=== PATIENT | female | born 1980 | race Caucasian/White ===

== ENCOUNTER 2018-02-01 19:40 | Observation (INO) | payer OTHER ==
[~2018-02-01] VITALS: Ht 172.7 cm; Wt 101.5 kg
[~2018-02-01 19:40] MED LIST: ALBUTEROL SULF8.5 GM IH; MOTRIN600 MG PO; NAPROXEN500 MG PO; PERCOCET 5/31 TABLET PO; SEROQUEL XR300 MG PO; SUBOXONE 8 M1 TABLET PO; TESSALON200 MG PO
[2018-02-01 21:04] LABS: HEMATOCRIT 37.5 % (36.0-46.0); HEMOGLOBIN 12.7 G/DL (11.9-15.5); MCH 29.8 PG (29.0-34.0); MCHC 33.9 G/DL (30.0-36.0); PLATELET COUNT 351 K/uL (156-360); RBC DIS.WIDTH-CV 13.9 % (11.8-14.6); RED BLOOD COUNT 4.26 M/uL (3.80-5.20); WHITE BLOOD COUNT 10.9 K/uL (4.1-10.2)
[2018-02-01 21:15] LABS: PTT 33.9 SEC (25-37)
[2018-02-01 21:24] LABS: CHLORIDE 112 mEq/L (99-109); POTASSIUM 3.8 mEq/L (3.7-5.4); SODIUM 140 mEq/L (136-147)
[2018-02-01 21:25] LABS: GLUCOSE 92 mg/dL (70-99)
[2018-02-01 21:29] LABS: CREATININE 0.9 mg/dL (0.6-1.3); GFR ESTIMATE (CALCULATED) > 59 mL/min/
[2018-02-01 21:30] LABS: UREA NITROGEN (BUN) 13 mg/dL (9-23)
[2018-02-01 21:37] LABS: QUANTITATIVE HCG < 4.0 MIU/ML
[2018-02-02 00:01] LABS: HDL CHOLESTEROL 36 MG/DL (Desirable>=50); LDL CHOLESTEROL 135 mg/dL (Desirable<100); NON-HDL CHOLESTEROL 183 mg/dL (Desirable<160); TOTAL CHOLESTEROL 219 mg/dL (Desirable<200); TRIGLYCERIDES 239 MG/DL (Normal: <150)
[2018-02-02 00:11] VITALS: BP 108/56
[2018-02-02 04:29] VITALS: BP 107/52
[2018-02-02 05:44] LABS: HEMATOCRIT 35.8 % (36.0-46.0); HEMOGLOBIN 11.5 G/DL (11.9-15.5); MCH 28.5 PG (29.0-34.0); MCHC 32.1 G/DL (30.0-36.0); MCV 88.8 FL (83-99); PLATELET COUNT 308 K/uL (156-360); RBC DIS.WIDTH-CV 13.9 % (11.8-14.6); RBC DIS.WIDTH-SD 45.3 % (39-53); RED BLOOD COUNT 4.03 M/uL (3.80-5.20); WHITE BLOOD COUNT 8.5 K/uL (4.1-10.2)
[2018-02-02 07:05] VITALS: BP 97/54
[2018-02-02 10:52] LABS: HEMOGLOBIN A1c (GLYCOHEMOGLOB) 5.2 % (Below 5.7)
[2018-02-02 11:35] VITALS: BP 125/67
[2018-02-02] MEDS ORDERED: ASPIR-LOW81 MG PO (11:45)
[2018-02-02] MEDS ORDERED: BUTALB-APAP-CA1 EACH PO (11:45)
[2018-02-02] MEDS ORDERED: PRAVASTATIN SOD40 MG PO (11:45)
== END 2018-02-02 12:05 | disposition home or self-care (01) ==
LOC: EME 19:40 → EDOF 22:22 → ENRESERV 22:24 → EDOF 02-02 → 5WEST 02-02
PROVIDERS: Nurse Practitioner Adult Health; Physician Assistant
DX: G45.9 Transient cerebral ischemic attack, unspecified (principal); F17.200 Nicotine dependence, unspecified, uncomplicated; Z88.0 Allergy status to penicillin
CPT/HCPCS: 70450; 70551; 80048; 80061; 81003; 83036; 84702; 85027; 85610; 85730; 93005; 93880; 99281; 99285; G0378